=== PATIENT | female | born 1990 | race Caucasian/White ===

== ENCOUNTER 2016-12-22 13:02 | Emergency (ER) | payer BC ==
[~2016-12-22] VITALS: Ht 160 cm; Wt 50.7 kg
[~2016-12-22 13:02] MED LIST: FIORIC PO; NUVAMIS PV
[2016-12-22 13:07] VITALS: BP 117/78; PULSE 133; RESP 16; TEMP 98.5; O2SAT 98
--- NOTE | 2016-12-22 13:28 | PD ---
HPI Chief Complaint: Abdominal Pain Time Seen by Provider: 13:12 Travel History International Travel<30 days: Yes Contact w/Intl Traveler<30days: Yes Name of Country Traveled to: [facility] Traveled to known affect area: No History of Present Illness HPI This 26-year-old female is complaining of lower abdominal pain. She's been having the pain for about a week. The pain is greater on the right side. She had gone to her primary care doctor last Friday with this pain and was sent for a CT scan which showed nonobstructive kidney stones which have been present on previous CT scans.. The patient has recently been diagnosed with endometriosis on the basis of a laparoscopy by Dr. Nino Velazquez last year. She says that in November she had colposcopy and there was concern she may have developed some infection and she was put on antibiotics at that time. She has had some nausea with the pain. sHe has been taking Naprosyn without much relief of the pain. She does have a nova ring for contraception PFSH Past Medical History Cancer: No Cardiovascular Problems: No Diabetes: No Diminished Hearing: No Endocrine: No Gastrointestinal Disorders: Yes (IBS?) Genitourinary: No Hepatitis: No Hiatal Hernia: No Hypertension: No Immune Disorder: No Kidney Stones: Yes Musculoskeletal: No Neurologic: Yes (SEIZURES IN PAST , NOT HAD ANY IN RECENT YEARS) Psychiatric: Yes (ANXIETY ON OCCASION) Reproductive: No Respiratory: No Immunizations Current: Yes Migraines: Yes Seizures: Yes Thyroid Disease: No ?: Not LMP: NUVA RING : 0 Para: 0 Miscarriage: 0 : 0 Past Surgical History AICD: No Gynecologic Surgery: Yes Joint Replacement: No Pacemaker: No Other Surgery: Yes Social History Alcohol Use: Yes (SOCIAL) Tobacco Use: No (ON AND OFF BUT HAS SINCE QUIT) Substance Use: No Allergies-Medications (Allergen,Severity, Reaction): Coded Allergies: Buspar (Unverified Allergy, Severe, SEIZURES, 12/22/16) Penicillin (Unverified Allergy, Severe, ANAPHYLAXIS, 12/22/16) Zithromax (Unverified Allergy, Severe, ANAPHYLAXIS, 12/22/16) Lamictal (Unverified Allergy, Intermediate, RASH, 12/22/16) Sulfa (Unverified Allergy, Intermediate, HEADACHE, VOMITING, 12/22/16) Reported Meds & Prescriptions Reported Meds & Active Scripts Active Reported Doxycycline Hyclate 100 Mg Tab 100 Mg PO BID Nabumetone (Bulk) Bulk Pow 500 Mg PO DIRECTED PRN Ativan (Lorazepam) 0.5 Mg Tab 0.5-1 Mg PO DAILY PRN Cymbalta DR (Duloxetine HCl) 20 Mg Capdr 20 Mg PO BID Quetiapine (Quetiapine Fumarate) 25 Mg Tab 25 Mg PO HS Acyclovir 800 Mg Tab 1 G PO BID Review of Systems General / Constitutional: No: Fever, Chills Eyes: No: Diploplia, Blurred Vision HENT: No: Headaches Cardiovascular: No: Chest Pain or Discomfort, Palpitations Respiratory: No: Cough, Shortness of Breath Gastrointestinal: Positive: Vomiting, Abdominal Pain, No: Nausea Genitourinary: No: Frequency Skin: No Rash Neurologic: No: Weakness, Dizziness Hematologic/Lymphatic: No: Easy Bruising Physical Exam Narrative GENERAL: Well-developed female SKIN: Focused skin assessment warm/dry. HEAD: Atraumatic. Normocephalic. EYES: Pupils equal and round. No scleral icterus. No injection or drainage. ENT: No nasal bleeding or discharge. Mucous membranes pink and moist. NECK: Trachea midline. No JVD. CARDIOVASCULAR: Regular rate and rhythm. No murmur appreciated. RESPIRATORY: No accessory muscle use. Clear to auscultation. Breath sounds equal bilaterally. GASTROINTESTINAL: Abdomen soft, there is bilateral lower abdominal tenderness, nondistended. Hepatic and splenic margins not palpable. Pelvic: Slight discharge. Nuva ring present, there is some pain with movement of the cervix MUSCULOSKELETAL: No obvious deformities. No clubbing. No cyanosis. No edema. NEUROLOGICAL: Awake and alert. No obvious cranial nerve deficits. Motor grossly within normal limits. Normal speech. PSYCHIATRIC: Appropriate mood and affect; insight and judgment normal. Data Data Last Documented VS Vital Signs Date Time Temp Pulse Resp B/P Pulse Ox O2 Delivery O2 Flow Rate FiO2 12/22/16 13:48 113 16 97 Room Air 12/22/16 13:07 98.5 117/78 Orders Urinalysis - C+S If Indicated (12/22/16 13:10) Ed Urine Pregnancytest Poc (12/22/16 13:12) Complete Blood Count With Diff (12/22/16 13:22) Basic Metabolic Panel (Bmp) (12/22/16 13:22) Sodium Chlor 0.9% 1000 Ml Inj (Ns 1000 M (12/22/16 13:30) Ondansetron Inj (Zofran Inj) (12/22/16 13:30) Hydromorphone Pf Inj (Dilaudid Pf Inj) (12/22/16 13:30) Gc And Chlamydia Pcr (12/22/16 14:19) Wet Prep Profile (12/22/16 14:19) Hydromorphone Pf Inj (Dilaudid Pf Inj) (12/22/16 15:15) Us Pelvis Comp W Transvaginal (12/22/16 13:22) Labs Laboratory Tests Test 12/22/16 12/22/16 12/22/16 13:15 13:35 14:20 Urine Collection Type CLEAN CATCH Urine Color YELLOW Urine Turbidity CLEAR Urine pH 6.0 Urine Specific [place] 1.016 Urine Protein NEG mg/dL Urine Glucose (UA) NEG mg/dL Urine Ketones NEG mg/dL Urine Occult Blood MOD Urine Nitrite NEG Urine Bilirubin NEG Urine Leukocyte Esterase NEG Urine RBC 10-14 /hpf Urine WBC 0-2 /hpf Urine Squamous Epithelial 0-5 /hpf Cells Urine Bacteria FEW /hpf Microscopic Urinalysis Comment CULT NOT INDICATED White Blood Count 7.4 TH/MM3 Red Blood Count 4.55 MIL/MM3 Hemoglobin 14.5 GM/DL Hematocrit 40.9 % Mean Corpuscular Volume 90.0 FL Mean Corpuscular Hemoglobin 31.9 PG Mean Corpuscular Hemoglobin 35.4 % Concent Red Cell Distribution Width 12.6 % Platelet Count 230 TH/MM3 Mean Platelet Volume 7.7 FL Neutrophils (%) (Auto) 64.7 % Lymphocytes (%) (Auto) 28.6 % Monocytes (%) (Auto) 5.0 % Eosinophils (%) (Auto) 0.7 % Basophils (%) (Auto) 1.0 % Neutrophils # (Auto) 4.7 TH/MM3 Lymphocytes # (Auto) 2.1 TH/MM3 Monocytes # (Auto) 0.4 TH/MM3 Eosinophils # (Auto) 0.1 TH/MM3 Basophils # (Auto) 0.1 TH/MM3 CBC Comment DIFF FINAL Differential Comment Sodium Level 141 MEQ/L Potassium Level 3.8 MEQ/L Chloride Level 109 MEQ/L Carbon Dioxide Level 22.3 MEQ/L Anion Gap 10 MEQ/L Blood Urea Nitrogen 8 MG/DL Creatinine 0.53 MG/DL Estimat Glomerular Filtration 142 ML/MIN Rate Random Glucose 82 MG/DL Calcium Level 9.1 MG/DL Clue Cells (Wet Prep) NONE SEEN Vaginal Trichomonas (Wet Prep) NONE SEEN Vaginal Yeast (Wet Prep) NONE SEEN MDM Medical Decision Making Medical Screen Exam Complete: Yes Emergency Medical Condition: Yes Medical Record Reviewed: Yes Differential Diagnosis Differential includes ovarian cyst, endometriosis, cervicitis Narrative Course White count is normal. This pain is most likely secondary to her diagnosed endometriosis. She is been quite uncomfortable with the pain getting no relief with anti-inflammatory medications. I will respect prescribe some Lortab. She is to follow-up with Dr. Nino bustamante Diagnosis Primary Impression: Endometriosis Scripts Hydrocodone-Acetaminophen (Lortab)7.5-325 Mg Tab1 Tab PO Q4H PRN (PAIN) #30 TAB Ref 0 Prov:Ben Michel MD 12/22/16 Disposition: 01 DISCHARGE HOME Condition: Stable Ben Michel MD December 22, 2016 13:27
[2016-12-22] MEDS ORDERED: HYDROmorphone HCL PF 1 MG/ML VIAL IV PUSH ONE ×2 (13:30→15:15)
[2016-12-22] MEDS ORDERED: SODIUM CHLOR 0.9% 1000 ML INJ 1,000 ML IV SCH (13:30)
[2016-12-22] MEDS ORDERED: [UNRECOGNIZED DRUG - CODE] PO (13:30)
[2016-12-22] MEDS ORDERED: DOXY100T PO (13:30)
[2016-12-22] MEDS ORDERED: ONDANSETRON HCL 4 MG/2 ML VIAL IV PUSH ONE (13:30)
[2016-12-22] MEDS ORDERED: DULO20 PO (13:30)
[2016-12-22] MEDS ORDERED: QUET1TAB7 PO (13:30)
[2016-12-22] MEDS ORDERED: LORA-392 PO (13:30)
[2016-12-22] MEDS ORDERED: ACYC800T PO (13:30)
[2016-12-22 13:44] LABS: AUTOMATED NEUTROPHIL # 4.7 TH/MM3 (1.8-7.7); BASOPHIL # 0.1 TH/MM3 (0-0.2); EOSINOPHIL # 0.1 TH/MM3 (0-0.4); EOSINOPHIL % 0.7 % (0.0-4.0); HEMATOCRIT 40.9 % (35.0-46.0); HEMO FLAGS DIFF FINAL; LYMPH % 28.6 % (9.0-44.0); LYMPHOCYTE # 2.1 TH/MM3 (1.0-4.8); MEAN CORPUSCULAR HEMOGLOBIN 31.9 PG (27.0-34.0); MEAN CORPUSCULAR HGB CONC 35.4 % (32.0-36.0); NEUT % 64.7 % (16.0-70.0); PLATELET COUNT 230 TH/MM3 (150-450); RED BLOOD COUNT 4.55 MIL/MM3 (4.00-5.30); RED CELL DISTRIBUTION WIDTH 12.6 % (11.6-17.2); WHITE BLOOD COUNT 7.4 TH/MM3 (4.0-11.0)
[2016-12-22 13:46] LABS: BLOOD, URINE MOD (NEG); GLUCOSE,URINE NEG (NEG); KETONE, URINE NEG (NEG); NITRITE,URINE NEG (NEG)
[2016-12-22 13:47] LABS: METHOD OF COLLECTION CLEAN CATCH; URINE COLOR YELLOW (YELLW/STRAW)
[2016-12-22 13:48] VITALS: PULSE 113; RESP 16; O2SAT 97
[2016-12-22 13:50] LABS: BACTERIA, URINE FEW /hpf; COMMENT (UR) CULT NOT INDICATED; CULTURE IF INDICATED CULT NOT INDICATED; SQUAMOUS EPITHELIAL CELL URINE 0-5 /hpf (0-5); WBC, URINE 0-2 /hpf (0-5)
[2016-12-22 13:51] LABS: POTASSIUM 3.8 MEQ/L (3.5-5.1)
[2016-12-22 13:55] LABS: BICARBONATE 22.3 MEQ/L (21.0-32.0)
[2016-12-22] MEDS ORDERED: HYDR-3534 PO (16:11)
--- NOTE | 2016-12-22 16:29 | RADHPO ---
EXAM DATE/TIME: 12/22/2016 14:52 [facility] COMPARISON: US PELVIS COMP W/TRANSVAGINAL, May 16, 2015, 13:29. INDICATIONS : Right pelvic pain. MEDICAL HISTORY : Renal calculi. Seizures. Endometriosis. Bilateral ovarian cysts. Depression. Anxiety. SURGICAL HISTORY : Colposcopy with cone biopsy. Laproscopic removal of endometriosis. ENCOUNTER: Subsequent ACUITY: 1 day PAIN SCORE: 7/10 LOCATION: Bilateral pelvis MEASUREMENTS: UTERUS: 10.1 x 6.9 x 3.5 cm ENDOMETRIAL STRIPE: 1 mm RIGHT OVARY: 3.4 x 2.6 x 1.4 cm LEFT OVARY: 2.4 x 1.9 x 1.1 cm FINDINGS: UTERUS: The myometrium has homogeneous echotexture without mass. Tiny echogenic focus measuring 2 mm in the region of the cervix which is nonspecific. RIGHT OVARY: Ovary contains no mass or significant cystic lesion. LEFT OVARY: Ovary contains no mass or significant cystic lesion. MISCELLANEOUS: No free fluid. CONCLUSION: Tiny echogenic focus within the cervix measuring 2 mm which is nonspecific. Otherwise unremarkable uterus and ovaries. No free fluid or adnexal mass. Dylan Caballero MD on December 22, 2016 at 16:22 Board Certified Radiologist. This report was verified electronically.
[2016-12-22 16:51] VITALS: BP 116/73
[2016-12-22 22:37] LABS: CHLAMYDIA PCR NOT DETECTED (NOT DETECT); NEISSERIA PCR NOT DETECTED (NOT DETECT)
== END 2016-12-22 16:52 | disposition home or self-care (01) ==
LOC: PHED 13:02
DX: N80.9 Endometriosis, unspecified (principal)
CPT/HCPCS: 76830; 76856; 80048; 81001; 84703; 85025; 87210; 87491; 87591; 96361; 96374; 96375; 96376; 99285; J1170; J2405; J7030

== ENCOUNTER 2017-06-10 21:55 | Emergency (ER) | payer BC ==
[~2017-06-10] VITALS: Ht 160 cm; Wt 53.5 kg
[~2017-06-10 21:55] MED LIST changes: +ACYC800T PO; +DOXY100T PO; +DULO20 PO; -FIORIC PO; +HYDR-3534 PO; +LORA-392 PO; -NUVAMIS PV; +QUET1TAB7 PO; +[UNRECOGNIZED DRUG - CODE] PO
[2017-06-10 22:19] VITALS: BP 148/88; PULSE 122; RESP 24; TEMP 98.4; O2SAT 99
[2017-06-10] MEDS ORDERED: TRAM50TA PO (22:28)
[2017-06-10] MEDS ORDERED: IBUP1TAB7 PO (22:28)
[2017-06-10] MEDS ORDERED: SERO100T PO (22:28)
[2017-06-10] MEDS ORDERED: CYMB60CA PO (22:28)
[2017-06-10 23:55] VITALS: BP 143/89; PULSE 101; RESP 20; O2SAT 99
[2017-06-11] MEDS ORDERED: PANTOPRAZOLE SODIUM 40 MG VIAL IV PUSH ONE (00:15)
[2017-06-11] MEDS ORDERED: ONDANSETRON HCL 4 MG/2 ML VIAL IV PUSH ONE (00:15)
[2017-06-11] MEDS ORDERED: SODIUM CHLOR 0.9% 1000 ML INJ 1,000 ML IV ONE (00:15)
[2017-06-11 00:34] LABS: AUTOMATED NEUTROPHIL # 5.9 TH/MM3 (1.8-7.7); BASOPHIL % 0.4 % (0.0-2.0); EOSINOPHIL # 0.1 TH/MM3 (0-0.4); EOSINOPHIL % 0.7 % (0.0-4.0); HEMATOCRIT 44.9 % (35.0-46.0); HEMO FLAGS DIFF FINAL; LYMPH % 35.6 % (9.0-44.0); LYMPHOCYTE # 3.7 TH/MM3 (1.0-4.8); MEAN CELL VOLUME 95.3 FL (80.0-100.0); MEAN CORPUSCULAR HEMOGLOBIN 32.6 PG (27.0-34.0); MEAN CORPUSCULAR HGB CONC 34.2 % (32.0-36.0); MONO % 6.1 % (0.0-8.0); NEUT % 57.2 % (16.0-70.0); PLATELET COUNT 324 TH/MM3 (150-450); RED BLOOD COUNT 4.71 MIL/MM3 (4.00-5.30); RED CELL DISTRIBUTION WIDTH 12.6 % (11.6-17.2); WHITE BLOOD COUNT 10.3 TH/MM3 (4.0-11.0)
[2017-06-11 00:48] LABS: CHLORIDE 103 MEQ/L (98-107); SODIUM (NA) 137 MEQ/L (136-145)
[2017-06-11 00:52] LABS: ANION GAP 10 MEQ/L (5-15); BICARBONATE 23.7 MEQ/L (21.0-32.0); BLOOD UREA NITROGEN 5 MG/DL (7-18)
[2017-06-11 00:55] LABS: ALT (GPT) 21 U/L (10-53); AST (GOT) 23 U/L (15-37); GLOMERULAR FILTRATION RATE 121 ML/MIN (>89)
[2017-06-11 00:57] LABS: TOTAL BILIRUBIN ADULT 0.6 MG/DL (0.2-1.0)
[2017-06-11 00:58] LABS: ALKALINE PHOSPHATASE 48 U/L (45-117)
[2017-06-11 01:04] LABS: POTASSIUM 3.2 MEQ/L (3.5-5.1)
[2017-06-11 02:41] VITALS: BP_SYST 137; BP_SYST 142; BP_DIAS 83; BP_DIAS 89; BP_DIAS 94; RESP 20
--- NOTE | 2017-06-11 02:47 | PD ---
HPI Chief Complaint: GI Complaint Time Seen by Provider: 23:05 Travel History International Travel<30 days: No Contact w/Intl Traveler<30days: No Traveled to known affect area: No History of Present Illness HPI pt reports GI bleed from rectum and abdominal pain RUQ . pt has Hx of endometriosis and laposcopic removal of endo cyst in pelvis, She took nothing for this pain has not seen another MD 2 days of pain and rectal bleeding BRBPR. localized pain no radiation PFSH Past Medical History Anxiety: Yes Depression: Yes Cancer: No Cardiovascular Problems: No Diabetes: No Diminished Hearing: No Endocrine: No Gastrointestinal Disorders: Yes (IBS?) Genitourinary: No Hepatitis: No Hiatal Hernia: No Hypertension: No Immune Disorder: No Kidney Stones: Yes Medical other: Yes (CHRONIC FATIGUE ) Musculoskeletal: No Neurologic: Yes (SEIZURES IN PAST , NOT HAD ANY IN RECENT YEARS) Psychiatric: Yes (ANXIETY ON OCCASION) Reproductive: Yes (ENDROMETRIOSIS) Respiratory: No Immunizations Current: Yes Migraines: Yes Seizures: Yes Thyroid Disease: No Tetanus Vaccination: Unknown Influenza Vaccination: No ?: Not LMP: 06/10/17 : 0 Para: 0 Miscarriage: 0 : 0 Past Surgical History AICD: No Gynecologic Surgery: Yes Joint Replacement: No Pacemaker: No Other Surgery: Yes ( BIOPSY) Social History Alcohol Use: Yes (SOCIAL) Tobacco Use: No (VAPES) Substance Use: No Allergies-Medications (Allergen,Severity, Reaction): Coded Allergies: azithromycin (Verified Allergy, Severe, ANAPHYLAXIS, 06/10/17) buspirone (Verified Allergy, Severe, SEIZURES, 06/10/17) penicillin G (Verified Allergy, Severe, ANAPHYLAXIS, 06/10/17) Sulfa (Sulfonamide Antibiotics) (Verified Allergy, Intermediate, HEADACHE , VOMITING, 06/10/17) lamotrigine (Verified Allergy, Intermediate, RASH, 06/10/17) Reported Meds & Prescriptions Reported Meds & Active Scripts Active Reported Ibuprofen 800 Mg Tab 800 Mg PO Q8H PRN Seroquel (Quetiapine Fumarate) 100 Mg Tab 100 Mg PO HS Cymbalta DR (Duloxetine HCl) 60 Mg Capdr 60 Mg PO BID Tramadol (Tramadol HCl) 50 Mg Tab 50 Mg PO BID PRN Ativan (Lorazepam) 0.5 Mg Tab 0.5-1 Mg PO DAILY PRN Acyclovir 800 Mg Tab 1 G PO BID Review of Systems Except as stated in HPI: all other systems reviewed are Neg Gastrointestinal: Positive: Nausea, Abdominal Pain, Hematochezia Physical Exam Narrative GENERAL: weepy voiced as she related her PMHx SKIN: Warm and dry. HEAD: Atraumatic. Normocephalic. EYES: Pupils equal and round. No scleral icterus. No injection or drainage. ENT: No nasal bleeding or discharge. Mucous membranes pink and moist. NECK: Trachea midline. No JVD. CARDIOVASCULAR: Regular rate and rhythm. RESPIRATORY: No accessory muscle use. Clear to auscultation. Breath sounds equal bilaterally. GASTROINTESTINAL: Abdomen soft, RUQ tender, nondistended. Hepatic and splenic margins not palpable. RECTAL little stool on glove GUIAIC NEG MUSCULOSKELETAL: Extremities without clubbing, cyanosis, or edema. No obvious deformities. NEUROLOGICAL: Awake and alert. No obvious cranial nerve deficits. Motor grossly within normal limits. Five out of 5 muscle strength in the arms and legs. Normal speech. PSYCHIATRIC: Appropriate mood and affect; insight and judgment normal. Data Data Last Documented VS Vital Signs Date Time Temp Pulse Resp B/P (MAP) Pulse Ox O2 Delivery O2 Flow Rate FiO2 06/11/17 03:25 91 20 136/74 (94) 98 06/10/17 23:55 Nasal Cannula 06/10/17 22:19 98.4 Orders Orders Sodium Chlor 0.9% 1000 Ml Inj (Ns 1000 M (06/11/17 00:15) Ondansetron Inj (Zofran Inj) (06/11/17 00:15) Pantoprazole Inj (Protonix Inj) (06/11/17 00:15) Complete Blood Count With Diff (06/11/17 00:09) Comprehensive Metabolic Panel (06/11/17 00:09) Lipase (06/11/17 00:09) Ketorolac Inj (Toradol Inj) (06/11/17 03:00) Ed Discharge Order (06/11/17 03:07) Labs Laboratory Tests Test 06/11/17 00:00 White Blood Count 10.3 TH/MM3 Red Blood Count 4.71 MIL/MM3 Hemoglobin 15.3 GM/DL Hematocrit 44.9 % Mean Corpuscular Volume 95.3 FL Mean Corpuscular Hemoglobin 32.6 PG Mean Corpuscular Hemoglobin Concent 34.2 % Red Cell Distribution Width 12.6 % Platelet Count 324 TH/MM3 Mean Platelet Volume 8.5 FL Neutrophils (%) (Auto) 57.2 % Lymphocytes (%) (Auto) 35.6 % Monocytes (%) (Auto) 6.1 % Eosinophils (%) (Auto) 0.7 % Basophils (%) (Auto) 0.4 % Neutrophils # (Auto) 5.9 TH/MM3 Lymphocytes # (Auto) 3.7 TH/MM3 Monocytes # (Auto) 0.6 TH/MM3 Eosinophils # (Auto) 0.1 TH/MM3 Basophils # (Auto) 0.0 TH/MM3 CBC Comment DIFF FINAL Differential Comment Blood Urea Nitrogen 5 MG/DL Creatinine 0.61 MG/DL Random Glucose 77 MG/DL Total Protein 8.1 GM/DL Albumin 3.9 GM/DL Calcium Level 8.9 MG/DL Alkaline Phosphatase 48 U/L Aspartate Amino Transf (AST/SGOT) 23 U/L Alanine Aminotransferase (ALT/SGPT) 21 U/L Total Bilirubin 0.6 MG/DL Sodium Level 137 MEQ/L Potassium Level 3.2 MEQ/L Chloride Level 103 MEQ/L Carbon Dioxide Level 23.7 MEQ/L Anion Gap 10 MEQ/L Estimat Glomerular Filtration Rate 121 ML/MIN Lipase 142 U/L [facility] Medical Decision Making Medical Screen Exam Complete: Yes Emergency Medical Condition: Yes Differential Diagnosis pt has abdo pain nos vs rectal bleed vs hemorrhoids vs diveticulitis Narrative Course exam No rectal blood GUAIAC negative and mild pain epigastric area labs normal and Protonix and toradol and feels better follow up as out pt Diagnosis Primary Impression: Abdominal pain Patient Instructions: Abdominal Pain (ED), General Instructions Disposition: 01 DISCHARGE HOME Condition: Good Roberto Hanna MD Jun 11, 2017 02:47
[2017-06-11] MEDS ORDERED: KETOROLAC TROMETHAMINE 30 MG/ML (IVP) VIAL IV PUSH ONE (03:00)
[2017-06-11 03:25] VITALS: BP 136/74
== END 2017-06-11 03:27 | disposition home or self-care (01) ==
LOC: PHED 21:55
DX: R10.11 Right upper quadrant pain (principal); K62.5 Hemorrhage of anus and rectum
CPT/HCPCS: 80053; 83690; 85025; 96361; 96374; 96375; 99284; C9113; J1885; J2405; J7030

== ENCOUNTER 2017-09-21 12:42 | Emergency (ER) | payer BC ==
[~2017-09-21] VITALS: Ht 160 cm; Wt 56.0 kg
[~2017-09-21 12:42] MED LIST changes: +CYMB60CA PO; -DOXY100T PO; -DULO20 PO; -HYDR-3534 PO; +IBUP1TAB7 PO; -QUET1TAB7 PO; +SERO100T PO; +TRAM50TA PO; -[UNRECOGNIZED DRUG - CODE] PO
[2017-09-21 12:44] VITALS: BP 163/82; PULSE 139; RESP 18; TEMP 98.3; O2SAT 97
[2017-09-21] MEDS ORDERED: CYCL10TA PO (12:54)
[2017-09-21 13:18] LABS: BILIRUBIN, URINE NEG (NEG); BLOOD, URINE SMALL (NEG); GLUCOSE,URINE NEG (NEG); KETONE, URINE NEG (NEG); NITRITE,URINE NEG (NEG); URINE LEUKOCYTE ESTERASE NEG (NEG)
[2017-09-21 13:26] LABS: BACTERIA, URINE MOD /hpf; SQUAMOUS EPITHELIAL CELL URINE 0-5 /hpf (0-5); URINE COLOR YELLOW (YELLW/STRAW)
[2017-09-21] MEDS ORDERED: SODIUM CHLOR 0.9% 1000 ML INJ 1,000 ML IV ONE (13:45)
[2017-09-21] MEDS ORDERED: KETOROLAC TROMETHAMINE 30 MG/ML (IVP) VIAL IV PUSH ONE (13:45)
[2017-09-21] MEDS ORDERED: LEVA250T14 PO (13:53)
[2017-09-21] MEDS ORDERED: TAMS5CAP PO (13:53)
[2017-09-21] MEDS ORDERED: HYDR-3516 PO (13:53)
--- NOTE | 2017-09-21 13:57 | PD ---
HPI Chief Complaint: Flank/Kidney Pain Time Seen by Provider: 13:41 Travel History International Travel<30 days: No Contact w/Intl Traveler<30days: No Traveled to known affect area: No History of Present Illness HPI Patient presents with complaints of right flank pain radiating to her groin. Positive history of kidney stones. States this feels similar to previous episodes. Reports colicky pain started yesterday. Nausea and vomiting yesterday. Only nausea today. Reports moderately good fluid intake. Denies . PFSH Past Medical History Anxiety: Yes Depression: Yes Cancer: No Cardiovascular Problems: No Diabetes: No Diminished Hearing: No Endocrine: No Gastrointestinal Disorders: Yes (IBS?) Genitourinary: No Hepatitis: No Hiatal Hernia: No Hypertension: No Immune Disorder: No Kidney Stones: Yes Musculoskeletal: No Neurologic: Yes (SEIZURES IN PAST , NOT HAD ANY IN RECENT YEARS) Psychiatric: Yes (ANXIETY ON OCCASION) Reproductive: Yes (ENDROMETRIOSIS) Respiratory: No Immunizations Current: Yes Migraines: Yes Seizures: Yes Thyroid Disease: No ?: Not LMP: NUVARING : 0 Para: 0 Miscarriage: 0 : 0 Past Surgical History AICD: No Gynecologic Surgery: Yes Joint Replacement: No Pacemaker: No Other Surgery: Yes ( BIOPSY) Social History Alcohol Use: Yes (SOCIAL) Tobacco Use: No (VAPES) Substance Use: No Allergies-Medications (Allergen,Severity, Reaction): Coded Allergies: azithromycin (Verified Allergy, Severe, ANAPHYLAXIS, 09/21/17) buspirone (Verified Allergy, Severe, SEIZURES, 09/21/17) penicillin G (Verified Allergy, Severe, ANAPHYLAXIS, 09/21/17) Sulfa (Sulfonamide Antibiotics) (Verified Allergy, Intermediate, HEADACHE , VOMITING, 09/21/17) lamotrigine (Verified Allergy, Intermediate, RASH, 09/21/17) Reported Meds & Prescriptions Reported Meds & Active Scripts Active Reported Flexeril (Cyclobenzaprine HCl) 10 Mg Tab 10 Mg PO TID Seroquel (Quetiapine Fumarate) 100 Mg Tab 100 Mg PO HS Cymbalta DR (Duloxetine HCl) 60 Mg Capdr 60 Mg PO BID Tramadol (Tramadol HCl) 50 Mg Tab 50 Mg PO BID PRN Ativan (Lorazepam) 0.5 Mg Tab 0.5-1 Mg PO DAILY PRN Acyclovir 800 Mg Tab 1 G PO BID Review of Systems General / Constitutional: No: Fever Eyes: No: Visual changes HENT: No: Headaches Cardiovascular: No: Chest Pain or Discomfort Respiratory: No: Shortness of Breath Gastrointestinal: No: Abdominal Pain Genitourinary: Positive: Flank Pain, No: Dysuria Musculoskeletal: No: Pain Skin: No Rash Neurologic: No: Weakness Psychiatric: No: Depression Endocrine: No: Polydipsia Hematologic/Lymphatic: No: Easy Bruising Physical Exam Narrative GENERAL: Well-nourished, well-developed patient. SKIN: Focused skin assessment warm/dry. HEAD: Normocephalic. EYES: No scleral icterus. No injection or drainage. NECK: Supple, trachea midline. No JVD or lymphadenopathy. CARDIOVASCULAR: Regular rate and rhythm without murmurs, gallops, or rubs. RESPIRATORY: Breath sounds equal bilaterally. No accessory muscle use. GASTROINTESTINAL: Abdomen soft, non-tender, nondistended. Tenderness right flank MUSCULOSKELETAL: No cyanosis, or edema. BACK: Nontender without obvious deformity. No CVA tenderness. Data Data Last Documented VS Vital Signs Date Time Temp Pulse Resp B/P (MAP) Pulse Ox O2 Delivery O2 Flow Rate FiO2 09/21/17 12:44 98.3 139 18 163/82 (109) 97 Orders Orders Urinalysis - C+S If Indicated (09/21/17 13:09) Ed Urine Pregnancytest Poc (09/21/17 13:18) Urine Culture (09/21/17 13:15) Sodium Chlor 0.9% 1000 Ml Inj (Ns 1000 M (09/21/17 13:45) Ketorolac Inj (Toradol Inj) (09/21/17 13:45) Labs Laboratory Tests Test 09/21/17 13:15 Urine Collection Type CLEAN CATCH Urine Color YELLOW Urine Turbidity CLEAR Urine pH 5.0 Urine Specific [place] 1.012 Urine Protein NEG mg/dL Urine Glucose (UA) NEG mg/dL Urine Ketones NEG mg/dL Urine Occult Blood SMALL Urine Nitrite NEG Urine Bilirubin NEG Urine Leukocyte Esterase NEG Urine RBC 10-14 /hpf Urine WBC 6-8 /hpf Urine Squamous Epithelial Cells 0-5 /hpf Urine Bacteria MOD /hpf Microscopic Urinalysis Comment CULTURE INDICATED Urine Collection Time 13:15 [facility] Medical Decision Making Medical Screen Exam Complete: Yes Emergency Medical Condition: Yes Differential Diagnosis Nephrolithiasis, UTI, cystitis Narrative Course Assessment and plan discussed with patient at bedside. Toradol with improvement of pain. Patient received 1 L normal saline. At this point I don' t think a CT is necessarily needed since this is similar to previous episodes. Diagnosis Primary Impression: Nephrolithiasis Patient Instructions: General Instructions Additional Instructions: Fluids fluids fluids. Cranberry supplement. Follow-up with PCP. Strain urine if she desires. Return to emergency room with any onset of new symptoms. Med/Other Pt SpecificInfo: Prescription(s) given Scripts Levofloxacin (Levaquin) 250 Mg Tablet 250 MG PO DAILY for Infection for 5 Days, #5 TAB 0 Refills Prov: Juan Antonio Negrete MD 09/21/17 Hydrocodone-Acetaminophen (Hydrocodone-Acetaminophen) 5-325 mg Tab 1 TAB PO Q4H Y for PAIN for 10 Days, #60 TAB 0 Refills Prov: Juan Antonio Negrete MD 09/21/17 Tamsulosin (Flomax) 0.4 Mg Cap 0.4 MG PO HS for Manage Prostate Problems, #20 CAP 0 Refills Prov: Juan Antonio Negrete MD 09/21/17 Disposition: 01 DISCHARGE HOME Condition: Good Juan Antonio Negrete MD Sep 21, 2017 13:57
== END 2017-09-21 14:45 | disposition home or self-care (01) ==
LOC: PHED 12:42
DX: N20.0 Calculus of kidney (principal); F41.9 Anxiety disorder, unspecified; F32.9 Major depressive disorder, single episode, unspecified; R56.9 Unspecified convulsions; F17.290 Nicotine dependence, other tobacco product, uncomplicated; Z87.442 Personal history of urinary calculi; Z87.19 Personal history of other diseases of the digestive system; Z79.899 Other long term (current) drug therapy; Z88.2 Allergy status to sulfonamides
CPT/HCPCS: 81001; 84703; 87086; 96374; 99284; J1885; J7030

== ENCOUNTER 2017-12-15 13:48 | Emergency (ER) | payer BC ==
[~2017-12-15] VITALS: Ht 160 cm; Wt 58.5 kg
[~2017-12-15 13:48] MED LIST changes: +CYCL10TA PO; +HYDR-3516 PO; -IBUP1TAB7 PO; +LEVA250T14 PO; +TAMS5CAP PO
--- NOTE | 2017-12-15 14:27 | PD ---
HPI Chief Complaint: Chest pain Time Seen by Provider: 14:21 Travel History International Travel<30 days: Yes Contact w/Intl Traveler<30days: Yes Traveled to known affect area: Yes History of Present Illness HPI This 27-year-old female is complaining of chest pain. She has been having a chest pain which is substernal. It lasts for a few seconds at a time. She has been having off and on since Friday. He says it Friday she did not feel well and she vomited several times. Friday she also vomited. On Friday she says she felt very tired and she slept most of the day. She has a history of fibromyalgia, endometriosis, kidney stones, migraine headaches and seizures. She apparently is seeing a doctor now thinks she may have chronic fatigue and has her on valacyclovir. She says she has not been short of breath. She took an Ativan this morning which did not seem to help PFSH Past Medical History Anxiety: Yes Depression: Yes Cancer: No Cardiovascular Problems: No Diabetes: No Diminished Hearing: No Endocrine: No Gastrointestinal Disorders: Yes (IBS?) Genitourinary: No Hepatitis: No Hiatal Hernia: No Hypertension: No Immune Disorder: No Kidney Stones: Yes Musculoskeletal: No Neurologic: Yes (SEIZURES IN PAST , NOT HAD ANY IN RECENT YEARS) Psychiatric: Yes (ANXIETY ON OCCASION) Reproductive: Yes (ENDROMETRIOSIS) Respiratory: No Immunizations Current: Yes Migraines: Yes Seizures: Yes Thyroid Disease: No : 0 Para: 0 Miscarriage: 0 : 0 Past Surgical History AICD: No Gynecologic Surgery: Yes Joint Replacement: No Pacemaker: No Other Surgery: Yes ( BIOPSY) Social History Alcohol Use: Yes (SOCIAL) Tobacco Use: No (VAPES) Substance Use: No Allergies-Medications (Allergen,Severity, Reaction): Coded Allergies: azithromycin (Verified Allergy, Severe, ANAPHYLAXIS, 12/15/17) buspirone (Verified Allergy, Severe, SEIZURES, 12/15/17) penicillin G (Verified Allergy, Severe, ANAPHYLAXIS, 12/15/17) Sulfa (Sulfonamide Antibiotics) (Verified Allergy, Intermediate, HEADACHE , VOMITING, 12/15/17) lamotrigine (Verified Allergy, Intermediate, RASH, 12/15/17) Reported Meds & Prescriptions Reported Meds & Active Scripts Active Reported Flexeril (Cyclobenzaprine HCl) 10 Mg Tab 10 Mg PO TID Seroquel (Quetiapine Fumarate) 100 Mg Tab 100 Mg PO HS Cymbalta DR (Duloxetine HCl) 60 Mg Capdr 60 Mg PO BID Tramadol (Tramadol HCl) 50 Mg Tab 50 Mg PO BID PRN Ativan (Lorazepam) 0.5 Mg Tab 0.5-1 Mg PO DAILY PRN Acyclovir 800 Mg Tab 1 G PO BID Review of Systems General / Constitutional: No: Fever, Chills Eyes: No: Diploplia, Blurred Vision HENT: No: Headaches, Vertigo Cardiovascular: Positive: Chest Pain or Discomfort, No: Palpitations, Irregular Rhythm Respiratory: No: Cough, Shortness of Breath Gastrointestinal: Positive: Nausea, Vomiting Genitourinary: No: Urgency, Frequency Musculoskeletal: No: Myalgias, Arthralgias Skin: No Rash, No Itching Neurologic: Positive: Weakness, No: Dizziness Endocrine: No: Heat Intolerance, Cold Intolerance Hematologic/Lymphatic: No: Easy Bruising Physical Exam Narrative GENERAL: Well-developed female who appears anxious SKIN: Focused skin assessment warm/dry. HEAD: Atraumatic. Normocephalic. EYES: Pupils equal and round. No scleral icterus. No injection or drainage. ENT: No nasal bleeding or discharge. Mucous membranes pink and moist. NECK: Trachea midline. No JVD. CARDIOVASCULAR: Rapid regular rate and rhythm. No murmur appreciated. RESPIRATORY: No accessory muscle use. Clear to auscultation. Breath sounds equal bilaterally. GASTROINTESTINAL: Abdomen soft, non-tender, nondistended. Hepatic and splenic margins not palpable. MUSCULOSKELETAL: No obvious deformities. No clubbing. No cyanosis. No edema. NEUROLOGICAL: Awake and alert. No obvious cranial nerve deficits. Motor grossly within normal limits. Normal speech. PSYCHIATRIC: Patient does appear anxious Data Data Last Documented VS Vital Signs Date Time Temp Pulse Resp B/P (MAP) Pulse Ox O2 Delivery O2 Flow Rate FiO2 12/15/17 16:55 107 16 141/92 (108) 98 12/15/17 16:25 Room Air 12/15/17 14:28 98.7 Orders Orders Electrocardiogram (12/15/17 14:22) Complete Blood Count With Diff (12/15/17 14:22) Comprehensive Metabolic Panel (12/15/17 14:22) Troponin I (12/15/17 14:22) B-Type Natriuretic Peptide (12/15/17 14:22) Urinalysis - C+S If Indicated (12/15/17 14:22) Magnesium (Mg) (12/15/17 14:22) Thyroid Stimulating Hormone (12/15/17 14:22) Sodium Chlor 0.9% 1000 Ml Inj (Ns 1000 M (12/15/17 14:30) Lorazepam Inj (Ativan Inj) (12/15/17 14:30) D-Dimer (12/15/17 14:27) Ed Discharge Order (12/15/17 16:28) Labs Laboratory Tests Test 12/15/17 14:25 12/15/17 14:45 12/15/17 14:52 12/15/17 15:35 White Blood Count 8.1 TH/MM3 Red Blood Count 4.37 MIL/MM3 Hemoglobin 14.4 GM/DL Hematocrit 41.2 % Mean Corpuscular Volume 94.3 FL Mean Corpuscular Hemoglobin 32.9 PG Mean Corpuscular Hemoglobin Concent 34.9 % Red Cell Distribution Width 12.1 % Platelet Count 275 TH/MM3 Mean Platelet Volume 8.4 FL Neutrophils (%) (Auto) 67.2 % Lymphocytes (%) (Auto) 23.9 % Monocytes (%) (Auto) 6.1 % Eosinophils (%) (Auto) 0.2 % Basophils (%) (Auto) 2.6 % Neutrophils # (Auto) 5.5 TH/MM3 Lymphocytes # (Auto) 1.9 TH/MM3 Monocytes # (Auto) 0.5 TH/MM3 Eosinophils # (Auto) 0.0 TH/MM3 Basophils # (Auto) 0.2 TH/MM3 CBC Comment DIFF FINAL Differential Comment Blood Urea Nitrogen 7 MG/DL Creatinine 0.73 MG/DL Random Glucose 87 MG/DL Total Protein 8.0 GM/DL Albumin 3.6 GM/DL Calcium Level 9.0 MG/DL Magnesium Level 2.1 MG/DL Alkaline Phosphatase 44 U/L Aspartate Amino Transf (AST/SGOT) 29 U/L Alanine Aminotransferase (ALT/SGPT) 22 U/L Total Bilirubin 0.4 MG/DL Sodium Level 137 MEQ/L Potassium Level 3.9 MEQ/L Chloride Level 105 MEQ/L Carbon Dioxide Level 24.4 MEQ/L Anion Gap 8 MEQ/L Estimat Glomerular Filtration Rate 97 ML/MIN Troponin I LESS THAN 0.02 NG/ML Thyroid Stimulating Hormone 3rd Gen 1.610 uIU/ML B-Type Natriuretic Peptide LESS THAN 2 PG/ML D-Dimer Quantitative (PE/DVT) 0.26 MG/L FEU Urine Color YELLOW Urine Turbidity CLEAR Urine pH 5.5 Urine Specific [place] LESS/EQUAL 1.005 Urine Protein NEG mg/dL Urine Glucose (UA) NEG mg/dL Urine Ketones NEG mg/dL Urine Occult Blood TRACE Urine Nitrite NEG Urine Bilirubin NEG Urine Urobilinogen 0.2 MG/DL Urine Leukocyte Esterase NEG Urine Squamous Epithelial Cells 0-5 /hpf Microscopic Urinalysis Comment CULT NOT INDICATED MDM Medical Decision Making Medical Screen Exam Complete: Yes Emergency Medical Condition: Yes Medical Record Reviewed: Yes Differential Diagnosis Differential includes dysrhythmia, anxiety, electrolyte imbalance, adverse medication reaction Narrative Course EKG initially showed a narrow complex tachycardia at 150. The did appear to be P waves and this may be sinus tach though atrial flutter cannot be ruled out. Lab work and IV fluids have been ordered. The patient had been vomiting and may be dehydrated. Disposition will be determined by oncoming physician Ben Michel MD December 15, 2017 14:27
[2017-12-15 14:28] VITALS: BP 153/106; PULSE 127; RESP 18; TEMP 98.7; O2SAT 97
[2017-12-15] MEDS ORDERED: LORazepam 2 MG/ML VIAL IV PUSH ONE (14:30)
[2017-12-15] MEDS ORDERED: SODIUM CHLOR 0.9% 1000 ML INJ 1,000 ML IV ONE (14:30)
[2017-12-15 14:37] LABS: AUTOMATED NEUTROPHIL # 5.5 TH/MM3 (1.8-7.7); BASOPHIL # 0.2 TH/MM3 (0-0.2); BASOPHIL % 2.6 % (0.0-2.0); EOSINOPHIL % 0.2 % (0.0-4.0); HEMATOCRIT 41.2 % (35.0-46.0); HEMOGLOBIN 14.4 GM/DL (11.6-15.3); LYMPH % 23.9 % (9.0-44.0); LYMPHOCYTE # 1.9 TH/MM3 (1.0-4.8); MEAN CELL VOLUME 94.3 FL (80.0-100.0); MEAN CORPUSCULAR HEMOGLOBIN 32.9 PG (27.0-34.0); MEAN CORPUSCULAR HGB CONC 34.9 % (32.0-36.0); MEAN PLATELET VOLUME 8.4 FL (7.0-11.0); MONO % 6.1 % (0.0-8.0); MONOCYTE # 0.5 TH/MM3 (0-0.9); NEUT % 67.2 % (16.0-70.0); PLATELET COUNT 275 TH/MM3 (150-450); RED BLOOD COUNT 4.37 MIL/MM3 (4.00-5.30); RED CELL DISTRIBUTION WIDTH 12.1 % (11.6-17.2); WHITE BLOOD COUNT 8.1 TH/MM3 (4.0-11.0)
[2017-12-15 14:50] LABS: CHLORIDE 105 MEQ/L (98-107); SODIUM (NA) 137 MEQ/L (136-145)
[2017-12-15 14:54] LABS: ALBUMIN 3.6 GM/DL (3.4-5.0); BICARBONATE 24.4 MEQ/L (21.0-32.0); BLOOD UREA NITROGEN 7 MG/DL (7-18); GLUCOSE,RANDOM 87 MG/DL (74-106); MAGNESIUM 2.1 MG/DL (1.5-2.5)
[2017-12-15 14:57] LABS: ALT (GPT) 22 U/L (10-53); AST (GOT) 29 U/L (15-37); CREATININE 0.73 MG/DL (0.50-1.00); GLOMERULAR FILTRATION RATE 97 ML/MIN (>89)
[2017-12-15 14:59] LABS: TOTAL BILIRUBIN ADULT 0.4 MG/DL (0.2-1.0)
[2017-12-15 15:00] LABS: ALKALINE PHOSPHATASE 44 U/L (45-117)
[2017-12-15 15:03] LABS: TROPONIN I LESS THAN 0.02 NG/ML (0.02-0.05)
[2017-12-15 15:50] LABS: BILIRUBIN, URINE NEG (NEG); BLOOD, URINE TRACE (NEG); GLUCOSE,URINE NEG (NEG); KETONE, URINE NEG (NEG); NITRITE,URINE NEG (NEG); PH, URINE 5.5 (5.0-8.5); URINE COLOR YELLOW (YELLW/STRAW); URINE LEUKOCYTE ESTERASE NEG (NEG)
[2017-12-15 16:00] VITALS: BP 137/92; PULSE 100; RESP 16; O2SAT 98
[2017-12-15 16:03] LABS: SQUAMOUS EPITHELIAL CELL URINE 0-5 /hpf (0-5)
--- NOTE | 2017-12-15 16:32 | PD ---
Data Data Last Documented VS Vital Signs Date Time Temp Pulse Resp B/P (MAP) Pulse Ox O2 Delivery O2 Flow Rate FiO2 12/15/17 14:32 (122) 12/15/17 14:28 Room Air 12/15/17 14:28 98.7 127 18 97 Orders Orders Electrocardiogram (12/15/17 14:22) Complete Blood Count With Diff (12/15/17 14:22) Comprehensive Metabolic Panel (12/15/17 14:22) Troponin I (12/15/17 14:22) B-Type Natriuretic Peptide (12/15/17 14:22) Urinalysis - C+S If Indicated (12/15/17 14:22) Magnesium (Mg) (12/15/17 14:22) Thyroid Stimulating Hormone (12/15/17 14:22) Sodium Chlor 0.9% 1000 Ml Inj (Ns 1000 M (12/15/17 14:30) Lorazepam Inj (Ativan Inj) (12/15/17 14:30) D-Dimer (12/15/17 14:27) Ed Discharge Order (12/15/17 16:28) Labs Laboratory Tests Test 12/15/17 14:25 12/15/17 14:45 12/15/17 14:52 12/15/17 15:35 White Blood Count 8.1 TH/MM3 Red Blood Count 4.37 MIL/MM3 Hemoglobin 14.4 GM/DL Hematocrit 41.2 % Mean Corpuscular Volume 94.3 FL Mean Corpuscular Hemoglobin 32.9 PG Mean Corpuscular Hemoglobin Concent 34.9 % Red Cell Distribution Width 12.1 % Platelet Count 275 TH/MM3 Mean Platelet Volume 8.4 FL Neutrophils (%) (Auto) 67.2 % Lymphocytes (%) (Auto) 23.9 % Monocytes (%) (Auto) 6.1 % Eosinophils (%) (Auto) 0.2 % Basophils (%) (Auto) 2.6 % Neutrophils # (Auto) 5.5 TH/MM3 Lymphocytes # (Auto) 1.9 TH/MM3 Monocytes # (Auto) 0.5 TH/MM3 Eosinophils # (Auto) 0.0 TH/MM3 Basophils # (Auto) 0.2 TH/MM3 CBC Comment DIFF FINAL Differential Comment Blood Urea Nitrogen 7 MG/DL Creatinine 0.73 MG/DL Random Glucose 87 MG/DL Total Protein 8.0 GM/DL Albumin 3.6 GM/DL Calcium Level 9.0 MG/DL Magnesium Level 2.1 MG/DL Alkaline Phosphatase 44 U/L Aspartate Amino Transf (AST/SGOT) 29 U/L Alanine Aminotransferase (ALT/SGPT) 22 U/L Total Bilirubin 0.4 MG/DL Sodium Level 137 MEQ/L Potassium Level 3.9 MEQ/L Chloride Level 105 MEQ/L Carbon Dioxide Level 24.4 MEQ/L Anion Gap 8 MEQ/L Estimat Glomerular Filtration Rate 97 ML/MIN Troponin I LESS THAN 0.02 NG/ML Thyroid Stimulating Hormone 3rd Gen 1.610 uIU/ML B-Type Natriuretic Peptide LESS THAN 2 PG/ML D-Dimer Quantitative (PE/DVT) 0.26 MG/L FEU Urine Color YELLOW Urine Turbidity CLEAR Urine pH 5.5 Urine Specific [place] LESS/EQUAL 1.005 Urine Protein NEG mg/dL Urine Glucose (UA) NEG mg/dL Urine Ketones NEG mg/dL Urine Occult Blood TRACE Urine Nitrite NEG Urine Bilirubin NEG Urine Urobilinogen 0.2 MG/DL Urine Leukocyte Esterase NEG Urine Squamous Epithelial Cells 0-5 /hpf Microscopic Urinalysis Comment CULT NOT INDICATED MDM Medical Record Reviewed: Yes Supervised Visit with FRANCIS: No Narrative Course CBC & BMP Diagram 12/15/17 14:25 Total Protein 8.0, Albumin 3.6, Calcium Level 9.0, Magnesium Level 2.1, Alkaline Phosphatase 44 L, Aspartate Amino Transf (AST/SGOT) 29, Alanine Aminotransferase (ALT/SGPT) 22, Total Bilirubin 0.4 Tn < 0.02 BNP < 2 TSH 1.610 UA: no UTI DDimer < 0.5 EKG: Sinus tachycardia, rate 141 1L NS and 1mg ativan given here, pulse decreaseed to 100. BP approximately 163/ 82. Patient reassessed at 4:25 PM. The patient is resting comfortably and feels better, is alert and in no distress. The patients results and examination findings were discussed. The repeat examination is unremarkable and benign. The history, exam, diagnostic testing, and current condition do not suggest any significant pathology to warrant further testing, continued ED treatment, admission, or surgical evaluation at this point. The vital signs have been stable. The patient does not have uncontrollable pain, intractable vomiting, or other significant symptoms. The patient's condition is stable and appropriate for discharge. The patient will pursue further outpatient evaluation with a primary care physician or other designated or consulting physician as indicated in the discharge instructions. The patient expressed understanding and was agreeable with this plan. Diagnosis Primary Impression: Anxiety Additional Impression: Tachycardia Referrals: Shar Covarrubias MD call for appointment Med/Other Pt SpecificInfo: No Change to Meds Disposition: 01 DISCHARGE HOME Condition: Stable Sumit Sellers MD December 15, 2017 16:32
[2017-12-15 16:55] VITALS: BP 141/92
--- NOTE | 2017-12-16 16:08 | EKG ---
Date Performed: 12/15/2017 Time Performed: 13:57:55 PTAGE: 27 years EKG: SINUS TACHYCARDIA, MODERATE ST DEPRESSION ABNORMAL ECG when compared to prior ekg, patient is now in sinus tachycardia. PREVIOUS TRACING : 10/27/2015 12.58 DOCTOR: Jordi Hanna Interpretating Date/Time 12/16/2017 16:04:23
== END 2017-12-15 16:57 | disposition home or self-care (01) ==
LOC: PHED 13:48
DX: F41.9 Anxiety disorder, unspecified (principal); R00.0 Tachycardia, unspecified; R94.31 Abnormal electrocardiogram [ECG] [EKG]; R56.9 Unspecified convulsions; M79.7 Fibromyalgia; R06.02 Shortness of breath; Z88.2 Allergy status to sulfonamides; Z88.0 Allergy status to penicillin; Z87.442 Personal history of urinary calculi
CPT/HCPCS: 80053; 81001; 83735; 83880; 84443; 84484; 85025; 85379; 93005; 96374; 99284; J2060; J7030